=== PATIENT | male | born 1995 | race American Indian/Alaskan Native ===

== ENCOUNTER 2021-05-27 14:42 | Emergency (ER) | payer SELFPAY ==
[2021-05-27 16:08] VITALS: BP 105/77
[2021-05-27] MEDS ORDERED: oxyCODONE /ACETAMINOPHEN 5-325MG TAB PO PRN (18:26)
--- NOTE | 2021-05-27 18:27 | Emergency Department Report ---
ED Head Trauma HPI - General Chief complaint: Head Injury Stated complaint: POSS BROKEN NOSE Source: patient Mode of arrival: Ambulatory Limitations: No Limitations - History of Present Illness Initial comments: 25-year-old male presents to the ED complaining of pain after colliding with another individual during a basketball game. Patient has obvious swelling and mild deformity noted to the nasal bone. He denies any prior treatment . He states pain is a 5 out of 10 at present. Patient denies any LOC. Patient is alert and oriented x4. MD Complaint: head injury Onset/Timin -: days(s) Mechanism of Injury: sports related injury Location: face, other (nasal) Loss of Consciousness: no Previous Trauma to this Area: No Severity: moderate Severity scale (0 -10): 5 Quality: aching Consistency: intermittent Provoking factors: none known - Related Data Previous Rx's Medication Instructions Recorded Last Taken Type Acetaminophen/Codeine [Tylenol 1 tab PO Q6H PRN 3 Days #12 tab 05/27/21 Unknown Rx /Codeine # 3 tab] Allergies/Adverse reactions: Allergies Allergy/AdvReac Type Severity Reaction Status Date / Time No Known Allergies Allergy Verified 02/05/14 11:17 ED Review of Systems ROS: Stated complaint: POSS BROKEN NOSE Other details as noted in HPI Constitutional: denies: chills, fever Eyes: denies: eye pain, eye discharge, vision change ENT: denies: ear pain, throat pain Respiratory: denies: cough, shortness of breath, wheezing Cardiovascular: denies: chest pain, palpitations Endocrine: no symptoms reported Gastrointestinal: denies: abdominal pain, nausea, diarrhea Genitourinary: denies: urgency, dysuria Musculoskeletal: joint swelling. denies: back pain, arthralgia Skin: denies: rash, lesions Neurological: denies: headache, weakness, paresthesias Psychiatric: denies: anxiety, depression Hematological/Lymphatic: denies: easy bleeding, easy bruising ED Past Medical Hx - Past Medical History Previous Medical History?: No - Surgical History Past Surgical History?: No - Social History Smoking Status: Current Every Day Smoker Substance Use Type: None - Medications Home Medications: Home Medications Medication Instructions Recorded Confirmed Last Taken Type Acetaminophen/Codeine [Tylenol 1 tab PO Q6H PRN 3 Days #12 tab 05/27/21 Unknown Rx /Codeine # 3 tab] ED Physical Exam - General Limitations: No Limitations General appearance: alert, in no apparent distress - Head Head exam: Present: atraumatic, normocephalic - Eye Eye exam: Present: normal appearance - ENT ENT exam: Present: mucous membranes moist - Expanded ENT Exam Expanded Ear exam: Present: normal external inspection Mouth exam: Present: normal external inspection. Absent: drooling, trismus Teeth exam: Present: normal inspection Throat exam: Positive: normal inspection - Neck Neck exam: Present: normal inspection - Respiratory Respiratory exam: Present: normal lung sounds bilaterally. Absent: respiratory distress - Cardiovascular Cardiovascular Exam: Present: regular rate, normal rhythm. Absent: systolic murmur, diastolic murmur, rubs, gallop - GI/Abdominal GI/Abdominal exam: Present: soft, normal bowel sounds - Rectal Rectal exam: Present: deferred - Extremities Exam Extremities exam: Present: normal inspection - Back Exam Back exam: Present: normal inspection - Neurological Exam Neurological exam: Present: alert, oriented X3 - Psychiatric Psychiatric exam: Present: normal affect, normal mood - Skin Skin exam: Present: warm, dry, intact, normal color. Absent: rash ED Course Vital Signs 05/27/21 05/27/21 16:05 20:27 Temperature 97.9 F Pulse Rate 53 L 60 Respiratory 14 20 Rate Blood Pressure 105/77 O2 Sat by Pulse 99 100 Oximetry - Radiology Data [facility] [address] [place] [address] Cat Scan Report Signed Patient: NAV MOREAU MR#: [id number] : 1995 Acct:[id number] Age/Sex: 25 / M ADM Date: 05/27/21 Loc: ED Attending Dr: Ordering Physician: MOIRA HOWE Date of Service: 05/27/21 Procedure(s): CT facial bones wo con Accession Number(s): [id number] cc: MOIRA HOWE . CT facial bones wo con INDICATION / CLINICAL INFORMATION: 25 years Male; facial trauma. TECHNIQUE: Thin cut axial images obtained. Sagittal and coronal reconstructions performed. All CT scans at this location are performed using CT dose reduction for ALARA by means of automated exposure control. COMPARISON: None available. FINDINGS: Comminuted fracture is seen in the frontal process of the maxilla on the left, with apex of fragments directed medially, nearly against the nasal septum. This results in medial displacement of the left nasal bone, as well. Adjacent subcutaneous soft tissue thickening is seen. No other signs of acute bony facial trauma. Visualized paranasal sinuses and mastoid air cells are clear. Orbits are grossly normal. [place] tonsils, lingual tonsils, and adenoidal tissue are all prominent, presumably reactive in a patient this age. Subcutaneous sebaceous cyst seen superficial to the right zygomatic region. IMPRESSION: 1. Left nasal region trauma, as described above. Signer Name: Bienvenido Mattson MD, III Signed: 05/27/2021 6:50 PM Workstation Name: [id number] Transcribed By: HR Dictated By: Bienvenido Mattson MD Electronically Authenticated By: Bienvenido Mattson MD Signed Date/Time: 05/27/211849 DD/ 45 - Medical Decision Making 25-year-old male presents to the ED complaining of pain after colliding with another individual during a basketball game. Patient has obvious swelling and m deformity noted to the nasal bone. He denies any prior treatment . He states pain is a 5 out of 10 at present. Patient denies any LOC. Patient is alert and oriented x4. Consulted with Dr. Wade .Called Juanito for follow with [facility]. patient refused to await callback states that he will follow up with uJanito in the a.m. Discussed with patient the risk of permanent deformity noted for the facial area if he does not follow-up. Discussed nasal care with patient for fracture .patient verbalized understanding . Rechecked the patient is resting quietly quietly and comfortable and feeling better. I discussed the results of diagnostic study, my clinical impression and the plan for further treatment with the patient. Patient agrees with plan and discharge at this present time. All question addressed. I have given the patient instruction regarding a diagnosis ,expectation ,follow- up and return precaution. I explained to the patient that emergent condition may arise and to return to the ED for new worsen and any new persisting condition. I have explained the importance of following up with the primary care physician or referral physician listed below has instructed. The patient verbalized u nderstanding of discharge instruction. Critical care attestation.: If time is entered above; I have spent that time in minutes in the direct care of this critically ill patient, excluding procedure time. ED Disposition Clinical Impression: Nasal bone fracture Qualifiers: Encounter type: initial encounter Fracture type: closed Qualified Code(s): S02.2XXA - Fracture of nasal bones, initial encounter for closed fracture Disposition: 01 HOME / SELF CARE / HOMELESS Is pt being admited?: No Does the pt Need Aspirin: No Condition: Stable Instructions: Nasal Fracture, [id number] Additional Instructions: Follow-up with [facility] for nasal fracture Return to ED for any worsening symptoms take medication as needed Prescriptions: Acetaminophen/Codeine [Tylenol /Codeine # 3 tab] 1 tab PO Q6H PRN 3 Days #12 tab PRN Reason: Mild Pain Unrelieved By Apap Referrals: PRIMARY CARE, [Primary Care Provider] - 3-[address] [facility] [Outside] - 3-5 Days Forms: Work/School Release Form(ED)
--- NOTE | 2021-05-27 18:54 | Cat Scan Report ---
. CT facial bones wo con INDICATION / CLINICAL INFORMATION: 25 years Male; facial trauma. TECHNIQUE: Thin cut axial images obtained. Sagittal and coronal reconstructions performed. All CT scans at this location are performed using CT dose reduction for ALARA by means of automated exposure control. COMPARISON: None available. FINDINGS: Comminuted fracture is seen in the frontal process of the maxilla on the left, with apex of fragments directed medially, nearly against the nasal septum. This results in medial displacement of the left nasal bone, as well. Adjacent subcutaneous soft tissue thickening is seen. No other signs of acute bony facial trauma. Visualized paranasal sinuses and mastoid air cells are clear. Orbits are grossly normal. [place] tonsils, lingual tonsils, and adenoidal tissue are all prominent, presumably reactive in a p atient this age. Subcutaneous sebaceous cyst seen superficial to the right zygomatic region. IMPRESSION: 1. Left nasal region trauma, as described above. Signer Name: Bienvenido Mattson MD, III Signed: 05/27/2021 6:50 PM Workstation Name: [id number]
== END 2021-05-27 20:27 | disposition home or self-care (01) ==
LOC: ED 14:42
DX: S02.2XXA Fracture of nasal bones, initial encounter for closed fracture (principal); F17.200 Nicotine dependence, unspecified, uncomplicated; X58.XXXA Exposure to other specified factors, initial encounter; Y93.89 Activity, other specified; Y92.89 Other specified places as the place of occurrence of the external cause; Y99.8 Other external cause status
CPT/HCPCS: 70486; 99283